=== PATIENT | female | born 1940 | race Caucasian/White ===

== ENCOUNTER 2017-05-05 11:08 | Emergency (ER) | payer MEDICARE ==
[~2017-05-05] VITALS: Ht 157.5 cm; Wt 70.5 kg
[2017-05-05 11:08] VITALS: BP 153/90
[2017-05-05] MEDS ORDERED: ECOT325T7 PO (11:19)
[2017-05-05] MEDS ORDERED: METF500T13 PO (11:19)
[2017-05-05] MEDS ORDERED: LISI10TA4 PO (11:19)
[2017-05-05] MEDS ORDERED: SIMV40TA2 PO (11:19)
[2017-05-05] MEDS ORDERED: IBUP-1022 PO (11:57)
== END 2017-05-05 12:33 | disposition home or self-care (01) ==
LOC: M ED 11:08
DX: K12.2 Cellulitis and abscess of mouth (principal)